=== PATIENT | female | born 1960 | race Caucasian/White ===

== ENCOUNTER 2021-01-19 05:07 | Day surgery (SDC) | payer OTHER ==
[2021-01-09 10:48] LABS: BASOPHILS % (AUTO) 0.9 % (0-1); EOSINOPHILS # (AUTO) 0.2 X10'3 (0-0.9); LYMPHOCYTES # (AUTO) 1.7 X10'3 (1.1-4.8); LYMPHOCYTES % (AUTO) 35.9 % (21-51); MEAN CORPUSCULAR HEMOGLOBIN 31.8 PG (27.0-31.0); MEAN CORPUSCULAR HGB CONC 34.2 g/dL (33.0-36.5); MEAN CORPUSCULAR VOLUME 93.1 FL (78-98); MEAN PLATELET VOLUME 8.2 FL (7.4-10.4); MONOCYTES # (AUTO) 0.4 X10'3 (0-0.9); MONOCYTES % (AUTO) 9.5 % (2-12); NEUTROPHILS # (AUTO) 2.3 X10'3 (1.8-7.7); NEUTROPHILS % (AUTO) 48.7 % (42-75); PRE OP HEMATOCRIT 38.9 % (35.0-45.0); PRE OP HEMOGLOBIN 13.3 g/dL (12.0-16.0); PRE OP PLATELET COUNT 248 X10'3 (140-440); RED BLOOD COUNT 4.18 X10'6 (4.20-5.60)
[2021-01-09 10:52] LABS: CLARITY,URINE SLIGHTLY CLOUDY (Clear); COLOR,URINE YELLOW (Yellow); GLUCOSE, URINE NEGATIVE (Neg); KETONES,URINE NEGATIVE (Neg); NITRITES, URINE NEGATIVE (Neg); OCCULT BLOOD,URINE NEGATIVE (Neg); PROTEIN,URINE NEGATIVE (Neg); UA COLLECTION TYPE CLN CATCH MIDSTREAM; UROBILINOGEN,URINE 0.2 E.U/dL (0.2-1.0)
[2021-01-09 10:53] LABS: LEUKOCYTE ESTERASE ,URINE NEGATIVE (Neg)
[2021-01-09 10:57] LABS: SQUAMOUS EPITHELIAL CELL,UR MODERATE /LPF (FEW)
[2021-01-09 10:58] LABS: BACTERIA,URINE 1+ /HPF (Neg); RBC,URINE 0-2 /HPF (0-2); TRANSITIONAL EPI CELLS,URINE FEW /HPF; WBC,URINE 0-4 /HPF (0-4)
[2021-01-09 11:00] LABS: ALBUMIN 3.9 G/DL (3.4-5.0); ALBUMIN/GLOBULIN RATIO 1.1 (1.1-1.5); ALKALINE PHOSPHATASE 86 IU/L (46-116); BLOOD UREA NITROGEN 19 MG/DL (7-18); CALCIUM 8.9 MG/DL (8.5-10.1); CHLORIDE 108 MMOL/L (99-107); CREATININE 0.76 MG/DL (0.40-0.90); PRE OP ALT 35 U/L (30-65); PRE OP ANION GAP 9 (8-16); PRE OP AST 19 U/L (10-37); PRE OP BILIRUB, TOTAL 0.4 MG/DL (0.0-1.0); PRE OP GLUCOSE 94 MG/DL (70-104); PRE OP POTASSIUM 4.4 MMOL/L (3.4-5.1); PRE OP SODIUM 144 MMOL/L (135-145); TOTAL CARBON DIOXIDE 27.2 MMOL/L (24-32); TOTAL PROTEIN 7.3 G/DL (6.4-8.2); eGFR 77 ML/MIN
[2021-01-19] VITALS (10 sets, daily range): BP systolic 132–174; BP diastolic 73–123
[~2021-01-19] VITALS: Ht 176.5 cm; Wt 86.3 kg
[~2021-01-19 05:07] MED LIST: CYCL1DRO OP; ESZO3TAB44 PO; EXEN2AUT SQ; NEBI2.5T3 PO; [UNRECOGNIZED DRUG - CODE] TOP; ringers solution, lacted 1,000 ML IV SCH
[2021-01-19] MEDS ORDERED: famotidine 20mg tablet PO ONE (05:30)
[2021-01-19] MEDS ORDERED: DOCUMENT DATE & TIME OF BETA-BLOCKER PO ONE (05:30)
[2021-01-19] MEDS ORDERED: cefazolin/dext.iso 2gm/50ml IV ONE (05:30)
[2021-01-19] MEDS ORDERED: BUPIVAcaine/PF 2.5mg/ml (0.25%) 10ml vial ONE (06:45)
[2021-01-19] MEDS ORDERED: bacitracin 15gm ointment TP ONE (06:45)
[2021-01-19] MEDS ORDERED: midazolam 1 mg/ML 2ml injection ONE ×2 (07:15)
[2021-01-19] MEDS ORDERED: fentaNYL/PF 50MCG/1 ML 2ML syringe ONE (07:15)
[2021-01-19] MEDS ORDERED: sevoflurane 250ml liquid IH ONE (07:16)
[2021-01-19] MEDS ORDERED: rocuronium 10mg/ml inj IV ONE (07:16)
[2021-01-19] MEDS ORDERED: propofol inj 20 ML IV ONE (07:49)
[2021-01-19] MEDS ORDERED: ROPIVAcaine 0.5% (5mg/ml) 30ml vial ONE (07:49)
[2021-01-19] MEDS ORDERED: proCHLORperazine 10 MG/2 ml inj IV PRN (08:25)
[2021-01-19] MEDS ORDERED: ringers solution, lacted 1,000 ML IV SCH (08:25)
[2021-01-19] MEDS ORDERED: meperidine/PF 25mg/ml syringe IV PRN ×2 (08:25)
[2021-01-19] MEDS ORDERED: morphine 4 MG/ML inj SYRINge IV PRN (08:25)
[2021-01-19] MEDS ORDERED: ondansetron/PF 4mg/2ml inj IV PRN (08:25)
[2021-01-19] MEDS ORDERED: morphine 2 MG/ML inj. syringe IV PRN (08:25)
[2021-01-19] MEDS ORDERED: acetaminophen 1,000mg/100ml IV 100 ML IV ONE (08:37)
[2021-01-19] MEDS ORDERED: neostigmine methylsulfate 1 MG/ML 10ml vial ONE (08:37)
[2021-01-19] MEDS ORDERED: LIDOcaine 1%/PF 5ML 10 MG/ML VIAL ONE (08:37)
[2021-01-19] MEDS ORDERED: ondansetron/PF 4mg/2ml inj ONE (08:37)
[2021-01-19] MEDS ORDERED: dexamethasone sod phosphate 4mg/ml inj. ONE (08:37)
[2021-01-19] MEDS ORDERED: glycopyrrolate 0.2mg/ml inj ONE (08:37)
--- NOTE | 2021-01-19 09:00 | NUR ---
FROM OR ON GURNEY, NO RESP DISTRESS, MED WITH DEMEROL FOR CO PAIN IN LEFT ANKLE. BP ELEVATED, DR MCQUEEN AWARE AND DOESN'T WITH TO MEDICATE FOR BP AT THIS TIME. LEFT ANKLE DRESSING IS A SPLINT, TOES ARE WARM AND MOVE WELL. PINK. NO N/V, SKIN WARM AND DRY.
[2021-01-19] MEDS: meperidine/PF 25mg/ml syringe IV PRN ×2 (09:12→09:42)
[2021-01-19] MEDS ORDERED: ROPIVAcaine 0.2%/PF PUMP/bolus 545 ML POPLITEAL SCH (09:15)
[2021-01-19] MEDS ORDERED: ROPIVAcaine 0.2% (10 MG/5 ML) BOLUS INJECTION POPLITEAL PRN (09:15)
[2021-01-19] MEDS ORDERED: LORazepam 2 mg/ml vial IM ONE (09:25)
--- NOTE | 2021-01-19 09:30 | NUR ---
PT CO NOT BEING ABLE TO GET A DEEP BREATH. LUNG SOUNDS ARE CLEAR. SAT 100% SHE STATES THAT SHE IS HAVING AN ANXIETY ATTACK. DR. MCQUEEN NOTIFIED, ORDERED ATIVAN. TOES CONTINUE TO MOVE, BRISK CAP REFILL, DSG CDI.
--- NOTE | 2021-01-19 09:48 | NUR ---
MED FOR ANXIETY WITH ATIVAN, GOOD RESULTS. MED FOR PAIN WITH DEMEROL. GOOD RESULTS.
[2021-01-19] MEDS ORDERED: glycopyrrolate 0.2mg/ml inj IV PRN (10:05)
--- NOTE | 2021-01-19 10:21 | NUR ---
HEART RATE DIPPED TO 38, DR. MCQUEEN NOTIFIED. AZALIA ORDERED. WHEN i WENT TO GIVE IT HER HEART RATE WAS ABOVE 50. DR. MCQUEEN STATED ANYTHING OVER 45 WAS OK. (PREOP HR 52.)
--- NOTE | 2021-01-19 10:38 | NUR ---
DRESSED AND WAITING TO BE PICKED UP. INSTRUCTIONS GIVEN, STATES UNDERSTANDS, BUT WILL BE GONE OVER WITH HER CAREGIVER WELL. DRESSING CONT CDI, IV OUT. TOLERATING PO.
--- NOTE | 2021-01-19 10:45 | NUR ---
DC TO HOME. DISCHARGE INSTRUCTIONS GIVEN TO BOTH PT AND CAREGIVER. WELL WRITTEN MATERIAL. STATES UNDERSTANDS. SHOWN HOW TO NON WEIGHT BEAR. TOES REMAIN WARM, AND MOVE, WITH BRISK CAP REFILL. TRANSFERRED TO CAR, SEATBELTED IN. CAREGIVER DRIVING.
== END 2021-01-19 10:45 | disposition home or self-care (01) ==
LOC: PAS 05:07
PROVIDERS: ATTEND Podiatrist Foot & Ankle Surgery
DX: S86.312A Strain of muscle(s) and tendon(s) of peroneal muscle group at lower leg level, left leg, initial encounter (principal); S93.492A Sprain of other ligament of left ankle, initial encounter; M25.372 Other instability, left ankle; G89.18 Other acute postprocedural pain; G47.30 Sleep apnea, unspecified; I10 Essential (primary) hypertension; Z20.822 Contact with and (suspected) exposure to COVID-19; Z88.5 Allergy status to narcotic agent; Z72.89 Other problems related to lifestyle; Z85.820 Personal history of malignant melanoma of skin; Z98.890 Other specified postprocedural states; Z79.899 Other long term (current) drug therapy; X58.XXXA Exposure to other specified factors, initial encounter; Y93.89 Activity, other specified; Y92.89 Other specified places as the place of occurrence of the external cause; Y99.8 Other external cause status
CPT/HCPCS: 27659; 27695; 36415; 64446; 64448; 64999; 76937; 80053; 81001; 82948; 85025; 93005; A6223; C1713; J0131; J0690; J1100; J2175; J2250; J2405; J2704; J2710; J2795; J3010; J3490; J7030; J7120; U0003; U0005; Z7506; Z7508; Z7512; A4618; A6253; A6449; A7000